=== PATIENT | male | born 1990 | race Caucasian/White ===

== ENCOUNTER → 2019-02-07 | Outpatient (CLI) | payer OTHER ==
[2019-02-07 17:38] LABS: Basophils # (A) 0.2 k/uL (0-0.2); Basophils % (A) 3 %; Eosinophils # (A) 0.2 k/uL (0-0.7); Eosinophils % (A) 2 %; HCT 46.2 % (39.0-53.0); HGB 16.1 gm/dL (13.0-17.5); Lymphocytes # (A) 2.4 k/uL (1.0-4.8); Lymphocytes % (A) 31 %; MCH 30.8 pg (25.0-35.0); MCHC 34.9 g/dL (31.0-37.0); MCV 88.2 fL (80.0-100.0); Mean Platelet Volume 6.7; Monocytes # (A) 0.3 k/uL (0-1.0); Monocytes % (A) 4 %; Neutrophils # (A) 4.6 k/uL (1.3-7.7); Neutrophils % (A) 59 %; Platelet Count 231 k/uL (150-450); RBC 5.24 m/uL (4.30-5.90); RDW 12.4 % (11.5-15.5); WBC 7.9 k/uL (3.8-10.6)
[2019-02-07 17:47] LABS: Prothrombin Time 10.6 sec (9.0-12.0)
[2019-02-08 00:37] LABS: ALT 40 U/L (10-49); AST 28 U/L (14-35); African American GFR (CKD) 133.3 (60.0-200.0); Albumin/Globulin Ratio 2.44 (1.60-3.17); Alkaline Phosphatase 89 U/L (41-126); Bilirubin, Conjugated <0.20 mg/dL (0.20-0.40); Globulin 1.8 g/dL (1.6-3.3); Total Bilirubin 0.4 mg/dL (0.2-1.2); Total Protein 6.2 g/dL (6.2-8.2)
[2019-02-08 01:29] LABS: Hepatitis A Antibody IgM Non-Reactive (Non-Reactive); Hepatitis B Core IgM Non-Reactive (Non-Reactive); Hepatitis B Surface Antigen Non-Reactive (Non-Reactive); Hepatitis C IgG Antibody Reactive (Non-Reactive)
[2019-02-09 11:53] LABS: HCV Qualitative Result DETECTED (Not detected); HCV Quant Log 6.75 (<1.08)
== END | disposition home or self-care (01) ==
LOC: LABWHC1 17:10
DX: B18.2 Chronic viral hepatitis C (principal)
CPT/HCPCS: 36415; 80074; 80076; 81596; 82565; 84520; 85025; 85610; 87522; 87902

== ENCOUNTER → 2019-02-09 | Outpatient (CLI) | payer OTHER ==
--- NOTE | 2019-02-09 16:05 | US ---
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 Chronic viral hepatis C, patient states no other symptom s EXAM MEASUREMENTS: Liver Length: 17.4 cm Gallbladder Wall: 0.2 cm CBD: 0.3 cm Right Kidney: 10.2 x 5.2 x 5.4 cm Pancreas: visualized portions wnl, limited by overlying midline bowel gas Liver: measures in upper limits of normal and the echotexture of the liver somewhat coarse Gallbladder: wnl Evidence for sonographic [place]'s sign: no CBD: visualized portions wnl, limited by overlying bowel gas Right Kidney: wnl There is no ascites. IMPRESSION: There are some limitations the exam. No acute abnormality. Findings may be indicative of hepatocellular disease.
== END | disposition home or self-care (01) ==
LOC: EEVIPCON 07:00 → RADUSWWP 07:04
PROVIDERS: ATTEND Internal Medicine Gastroenterology
DX: B18.2 Chronic viral hepatitis C (principal)
CPT/HCPCS: 76705

== ENCOUNTER → 2019-05-09 | Outpatient (CLI) | payer OTHER ==
[2019-05-09 17:04] LABS: Basophils # (A) 0.1 k/uL (0-0.2); Basophils % (A) 1 %; Eosinophils # (A) 0.6 k/uL (0-0.7); Eosinophils % (A) 8 %; HCT 45.9 % (39.0-53.0); HGB 16.3 gm/dL (13.0-17.5); Lymphocytes # (A) 3.1 k/uL (1.0-4.8); Lymphocytes % (A) 39 %; MCH 30.4 pg (25.0-35.0); MCHC 35.4 g/dL (31.0-37.0); MCV 85.8 fL (80.0-100.0); Mean Platelet Volume 7.4; Monocytes # (A) 0.4 k/uL (0-1.0); Monocytes % (A) 5 %; Neutrophils # (A) 3.5 k/uL (1.3-7.7); Neutrophils % (A) 45 %; Platelet Count 234 k/uL (150-450); RBC 5.35 m/uL (4.30-5.90); RDW 11.8 % (11.5-15.5); WBC 7.8 k/uL (3.8-10.6)
[2019-05-10 01:34] LABS: ALT 35 U/L (10-49); AST 23 U/L (14-35); Albumin/Globulin Ratio 2.32 (1.60-3.17); Alkaline Phosphatase 72 U/L (41-126); Bilirubin, Conjugated <0.20 mg/dL (0.20-0.40); Globulin 1.9 g/dL (1.6-3.3); Total Bilirubin 0.4 mg/dL (0.3-1.2); Total Protein 6.3 g/dL (6.2-8.2)
== END | disposition home or self-care (01) ==
LOC: LABWHC1 16:02
PROVIDERS: ATTEND Physician Assistant
DX: B18.2 Chronic viral hepatitis C (principal)
CPT/HCPCS: 36415; 80076; 85025; 87522

== ENCOUNTER → 2019-07-04 | Outpatient (CLI) | payer OTHER | END | disposition home or self-care (01) | DX: B18.2 Chronic viral hepatitis C (principal) | CPT/HCPCS: 36415; 80076; 85025; 85610; 87522 ==

== ENCOUNTER → 2019-10-10 | Outpatient (CLI) | payer OTHER ==
[2019-10-10 13:17] LABS: Basophils # (A) 0.1 k/uL (0-0.2); Basophils % (A) 1 %; Eosinophils # (A) 0.3 k/uL (0-0.7); Eosinophils % (A) 4 %; HCT 51.4 % (39.0-53.0); HGB 18.1 gm/dL (13.0-17.5); Lymphocytes % (A) 28 %; MCH 30.8 pg (25.0-35.0); MCHC 35.1 g/dL (31.0-37.0); MCV 87.7 fL (80.0-100.0); Mean Platelet Volume 7.4; Monocytes # (A) 0.3 k/uL (0-1.0); Monocytes % (A) 4 %; Neutrophils # (A) 4.4 k/uL (1.3-7.7); Neutrophils % (A) 62 %; Platelet Count 237 k/uL (150-450); RBC 5.87 m/uL (4.30-5.90); RDW 12.4 % (11.5-15.5); WBC 7.1 k/uL (3.8-10.6)
[2019-10-10 18:37] LABS: Albumin 4.6 g/dL (3.80-4.90); Albumin/Globulin Ratio 2.09 (1.60-3.17); Bilirubin, Conjugated 0.2 mg/dL (0.20-0.40); Bilirubin,Unconjugated 0.6 mg/dL; Globulin 2.2 g/dL (1.6-3.3); Total Bilirubin 0.8 mg/dL (0.2-1.2); Total Protein 6.8 g/dL (6.2-8.2)
== END | disposition home or self-care (01) ==
LOC: LABWHC1 12:11
PROVIDERS: ATTEND Physician Assistant
DX: B18.2 Chronic viral hepatitis C (principal)
CPT/HCPCS: 36415; 80076; 85025; 87522

== ENCOUNTER → 2021-07-30 | Outpatient (CLI) | payer OTHER ==
--- NOTE | 2021-07-30 08:32 | CT ---
EXAMINATION TYPE: CT sinus wo con DATE OF EXAM: 07/30/2021 COMPARISON: CT dated 01/30/2016 HISTORY: NASAL POLYP CT DLP: 621 mGycm. Automated Exposure Control for Dose Reduction was Utilized. TECHNIQUE: CT scan of the sinuses is performed without contrast, axial images are obtained, coronal r eformatted images are also reviewed. FINDINGS: Chronic fractures of the nasal bones, maxillary sinuses, bony nasal septum, lamina papyracea bilatera lly and ethmoid air cells. Deviated bony nasal septum convex to the right side posteriorly and to the left side anteriorly. Mucosal thickening of the nasal fossa more on right side. Hypoplastic left inf erior turbinate. Obstructed infundibulum and middle meatus bilaterally by mucosal thickening. Severe mucosal thickenin g of the right maxillary sinus, almost completely obliterated the entire sinus with milder circumfere ntial mucosal thickening of the left maxillary sinus. Thick sclerotic white of the maxillary sinuses consistent with chronic inflammatory changes. Mucosal thickening of the frontal sinus compartment and sphenoid sinus with complete obliteration of the ethmoid air cells. Hyperdensity seen within the ethmoid air cells and the right maxillary sinus w hich could be related to inspissated secretions however underlying fungal infection cannot be exclude d. Obstructive sphenoethmoidal recesses. Clear visualized mastoid air cells. Unremarkable orbits. IMPRESSION: Chronic sinusitis as detailed above, underlying sinonasal polyposis cannot be excluded. Other finding s as detailed above.
== END | disposition home or self-care (01) ==
LOC: RADCTMAIN 07:09
PROVIDERS: ATTEND Otolaryngology Sleep Medicine
DX: J32.9 Chronic sinusitis, unspecified (principal); J34.2 Deviated nasal septum; J34.89 Other specified disorders of nose and nasal sinuses
CPT/HCPCS: 70486

== ENCOUNTER → 2024-04-28 | Outpatient (CLI) | payer OTHER ==
[2024-04-29 04:01] LABS: BUN/Creat Ratio 9.44 Ratio (12.00-20.00); Blood Urea Nitrogen 8.5 mg/dL (9.0-27.0); Calcium 9.6 mg/dL (8.7-10.3); Carbon Dioxide 25.1 mmol/L (21.6-31.8); Chloride 102 mmol/L (96-109); Chol/HDL Ratio 4.75 Ratio; Glucose 82 mg/dL (70-110); LDL Cholesterol,Calculated 99.7 mg/dL (0.0-131.0); Potassium 4.2 mmol/L (3.5-5.5); Sodium 141 mmol/L (135-145)
== END | disposition home or self-care (01) ==
LOC: LABWHC1 16:06
PROVIDERS: ATTEND Nurse Practitioner Family
DX: Z13.1 Encounter for screening for diabetes mellitus (principal); E78.49 Other hyperlipidemia
CPT/HCPCS: 36415; 80048; 80061

== ENCOUNTER 2024-06-24 13:05 | Emergency (ER) | payer BC, OTHER ==
[2024-06-24 13:09] VITALS: RESP 18
--- NOTE | 2024-06-24 13:36 | ED ---
Back Pain HPI - General Chief Complaint: Back Pain/Injury Stated Complaint: Back pain Time Seen by Provider: 06/24/24 13:18 Source: patient, RN notes reviewed Limitations: no limitations - History of Present Illness Initial Comments: This is a 33-year-old male presenting with right lower back pain (12/28) x 5 days. Patient states pain began after getting out of bed on Thursday. Patient endorses possibility of disc herniation. States pain improves with movement, especially when leaning right. Endorses use of Tylenol with minimal relief. Denies radiculopathy, saddle paresthesia, urinary incontinence/retention. MD Complaint: back pain Onset/Timin -: days(s) Place: home Radiation: none Severity scale (1-10): 9 Consistency: constant Improves With: movement Worsens With: sitting upright, walking Context: bending Associated Symptoms: denies other symptoms Treatments Prior to Arrival: acetaminophen - Related Data Home Medications Medication Instructions Recorded Confirmed Cetirizine HCl [Zyrtec] 10 mg PO DAILY PRN 01/04/16 01/05/16 Multivit-Mins/Iron/Folic/Lycop 1 tab PO DAILY 01/04/16 01/05/16 [Centrum Men's Tablet] Previous Rx's Medication Instructions Recorded Nicotine 7Mg/24Hr Patch [Habitrol] 1 patch TRANSDERM DAILY #30 patch 01/08/16 QUEtiapine [SEROquel] 100 mg PO HS #30 tab 01/08/16 Venlafaxine HCl ER [Effexor XR] 75 mg PO DAILY #30 cap.er.24h 01/08/16 rOPINIRole HCL [Requip] 0.5 mg PO HS #30 tablet 01/08/16 Amoxicillin/Potassium Clav 1 each PO Q12HR #20 tab 01/30/16 [Augmentin 875-125 Tablet] Hydrocodone/Acetaminophen [[place] 1 each PO Q6HR PRN #20 tab 01/30/16 5-325] Cyclobenzaprine [Flexeril] 10 mg PO TID PRN #15 tab 06/24/24 predniSONE 50 mg PO DAILY #5 tab 06/24/24 Allergies Allergy/AdvReac Type Severity Reaction Status Date / Time No Known Allergies Allergy Verified 06/24/24 13:09 Review of Systems ROS Statement: Those systems with pertinent positive or pertinent negative responses have been documented in the HPI. ROS Other: All systems not noted in ROS Statement are negative. Past Medical History Additional Past Medical History / Comment(s): traumatic brain injury, substance abuse History of Any Multi-Drug Resistant Organisms: None Reported Past Surgical History: Adenoidectomy, Hernia Repair Additional Past Surgical History / Comment(s): sinus surgery, right inguinal hernia repair, sinus surgery. Past Anesthesia/Blood Transfusion Reactions: No Reported Reaction Past Psychological History: Anxiety, Depression Smoking Status: Never smoker, Vaper Past Alcohol Use History: Occasional Past Drug Use History: None Reported, Marijuana, Opiates - Past Family History Father Family Medical History: No Reported History Additional Family Medical History / Comment(s): Father is alive at age 55 with no major medical problems. Mother Family Medical History: Osteoarthritis (OA) Additional Family Medical History / Comment(s): Mother is alive at age 56 with osteoarthritis. Brother(s) Additional Family Medical History / Comment(s): He has one brother 28 years of age with anxiety. Sister(s) Additional Family Medical History / Comment(s): He has one sister 20 years of age with no major medical problems. General Exam Limitations: no limitations General appearance: alert, in no apparent distress Head exam: Present: atraumatic, normocephalic, normal inspection Eye exam: Present: normal appearance, PERRL, EOMI. Absent: scleral icterus, conjunctival injection, periorbital swelling ENT exam: Present: normal exam, mucous membranes moist Neck exam: Present: normal inspection. Absent: tenderness, meningismus, lymphadenopathy Respiratory exam: Present: normal lung sounds bilaterally. Absent: respiratory distress, wheezes, rales, rhonchi, stridor Cardiovascular Exam: Present: regular rate, normal rhythm, normal heart sounds. Absent: systolic murmur, diastolic murmur, rubs, gallop, clicks GI/Abdominal exam: Present: soft, normal bowel sounds. Absent: distended, tenderness, guarding, rebound, rigid Extremities exam: Present: normal inspection, full ROM, normal capillary refill. Absent: tenderness, pedal edema, joint swelling, calf tenderness Back exam: Present: normal inspection, muscle spasm, paraspinal tenderness (Positive left paralumbar muscle spasm/point tenderness). Absent: vertebral tenderness Neurological exam: Present: alert, oriented X3, CN II-XII intact Psychiatric exam: Present: normal affect, normal mood Skin exam: Present: warm, dry, intact, normal color. Absent: rash Course Vital Signs 06/24/24 06/24/24 13:07 14:55 Temperature 97.9 F 98 F Pulse Rate 102 H 92 Respiratory 18 18 Rate Blood Pressure 143/95 140/82 O2 Sat by Pulse 97 99 Oximetry Medical Decision Making - Medical Decision Making Was pt. sent in by a medical professional or institution (, PA, [employer], urgent care, hospital, or group home...) When possible be specific @ -No Did you speak to anyone other than the patient for history (EMS, parent, family, police, friend...)? What history was obtained from this source @ -No Did you review nursing and triage notes (agree or disagree)? Why? @ -I reviewed and agree with nursing and triage notes Were old charts reviewed (outside hosp., previous admission, EMS record, old EKG, old radiological studies, urgent care reports/EKG's, group home records)? Report findings @ -No old charts were reviewed Differential Diagnosis (chest pain, altered mental status, abdominal pain women, abdominal pain men, vaginal bleeding, weakness, fever, dyspnea, syncope, headache, dizziness, GI bleed, back pain, seizure, CVA, palpatations, mental health, musculoskeletal)? @ -Differential Back Pain: Strain, zoster, cauda equina syndrome, epidural abscess, vertebral osteomyelitis, discitis, fracture, subluxation, disc herniation, DJD, spinal stenosis, dissection, AAA, pancreatitis, peptic ulcer disease, pyelonephritis, kidney stone, this is not meant to be an all-inclusive list. EKG interpreted by me (3pts min.). @ -Not done X-rays interpreted by me (1pt min.). @ -None done CT interpreted by me (1pt min.). @ -None done U/S interpreted by me (1pt. min.). @ -None done What testing was considered but not performed or refused? (CT, X-rays, U/S, labs)? Why? @ -Imaging considered but with no significant trauma or concerning symptoms, this was deferred at this time. What meds were considered but not given or refused? Why? @ -None Did you discuss the management of the patient with other professionals (professionals i.e. , PA, [employer], lab, RT, psych nurse, social welfare administrator, ux engineer, teacher, evp and chief operating officer, family preservation caseworker)? Give summary @ -No Was smoking cessation discussed for >3mins.? @ -No Was critical care preformed (if so, how long)? @ -No Were there social determinants of health that impacted care today? How? (Homelessness, low income, unemployed, alcoholism, drug addiction, transportation, low edu. Level, literacy, decrease access to med. care, detention, rehab)? @ -No Was there de-escalation of care discussed even if they declined (Discuss DNR or withdrawal of care, Hospice)? DNR status @ -No What co-morbidities impacted this encounter? (DM, HTN, Smoking, COPD, CAD, Cancer, CVA, ARF, Chemo, Hep., AIDS, mental health diagnosis, sleep apnea, morbid obesity)? @ -None Was patient admitted / discharged? Hospital course, mention meds given and route, prescriptions, significant lab abnormalities, going to OR and other pertinent info. @ -Imaging considered but with no significant trauma or concerning symptoms, this was deferred at this time. Patient initially provided IM Toradol, Solu- Medrol, Norflex and lidocaine patch. Provided pain Dilaudid due to ongoing pain and discharged with tramadol starter pack. Prednisone and Flexeril sent to patient's pharmacy. Advised follow-up with orthospine regarding ongoing back symptoms. Discussed patient with Dr. Galicia. Undiagnosed new problem with uncertain prognosis? @ -No Drug Therapy requiring intensive monitoring for toxicity (Heparin, Nitro, Insulin, Cardizem)? @ -No Were any procedures done? @ -No Diagnosis/symptom? @ -Lumbar back strain Acute, or Chronic, or Acute on Chronic? @ -Acute Uncomplicated (without systemic symptoms) or Complicated (systemic symptoms)? @ -Uncomplicated Side effects of treatment? @ -No Exacerbation, Progression, or Severe Exacerbation? @ -No Poses a threat to life or bodily function? How? (Chest pain, [place], [place], pneumonia, PE, COPD, DKA, ARF, appy, cholecystitis, CVA, Diverticulitis, Homicidal, Suicidal, threat to staff... and all critical care pts) @ -No Disposition Clinical Impression: Strain of lumbar region, Mechanical back pain Disposition: HOME SELF-CARE Condition: Good Instructions (If sedation given, give patient instructions): Acute Low Back Pain (ED) Additional Instructions: Follow-up with orthospine for ongoing management of low back pain. Prescriptions: Cyclobenzaprine [Flexeril] 10 mg PO TID PRN #15 tab PRN Reason: Spasms predniSONE 50 mg PO DAILY #5 tab Is patient prescribed a controlled substance at d/c from ED?: No Referrals: Santino Orellana DO [Primary Care Provider] - 1-2 days Juice Hardy DO [Doctor of Osteopathic Medicine] - 1-2 days Time of Disposition: 14:40
[2024-06-24] MEDS: methylPREDNISolone SOD SUCCI 125 MG/2 ML VIAL IM ONE (14:00)
[2024-06-24] MEDS: ORPHENADRINE 30 MG/ML 2 ML VIAL IM STA (14:00)
[2024-06-24] MEDS: KETOROLAC 15 MG/ML 1 ML VIAL IM STA (14:00)
[2024-06-24] MEDS: LIDOCAINE 4% PATCH TOPICAL ONE (14:01)
[2024-06-24] MEDS: HYDROmorphone 0.5 MG/0.5 ML SYRINGE IM STA (14:57)
[2024-06-24] MEDS: traMADol 50 MG STARTER PACK 3 TAB BTL PO STA (14:57)
[2024-06-24 15:04] VITALS: BP 140/82; PULSE 92; TEMP 98
== END 2024-06-24 15:14 | disposition home or self-care (01) ==
LOC: EC 13:05
DX: S39.012A Strain of muscle, fascia and tendon of lower back, initial encounter (principal); F17.290 Nicotine dependence, other tobacco product, uncomplicated; X58.XXXA Exposure to other specified factors, initial encounter
CPT/HCPCS: 99283; 96372 ×4; J2360; J1885; J1171; J2919